=== PATIENT | female | born 1935 | race Caucasian/White ===

== ENCOUNTER → 2019-09-23 | Outpatient (CLI) | payer MEDICARE ==
--- NOTE | 2019-09-23 16:38 | RAD ---
VENOUS LOWER EXTREMITY RIGHT History: Right knee and leg pain. Comparison: None. Discussion: Multiple longitudinal and transverse high resolution real-time images of the venous system of right lower extremity were obtained with color and Doppler sampling. The common femoral, superficial femoral, popliteal and proximal calf veins are all patent and demonstrate normal flow and compressibility. Normal respiratory phasicity and augmentation is present. Impression: 1. No evidence of deep vein thrombosis within the right lower extremity. Electronically signed by: Juaquin Higginbotham DO (09/23/2019 4:35 PM) [id number]
--- NOTE | 2019-09-23 17:33 | RAD ---
Standing AP bilateral knee radiographs 09/23/2019 CLINICAL HISTORY: Anterior knee pain. Standing AP digital radiographs of both knees were obtained. No fracture or dislocation of either knee is seen on these AP radiographs. Moderate joint compartment narrowing ia seen involving the medial compartments of both knees, right greater than left. 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 Electronically signed by: Colin Green MD (09/23/2019 5:30 PM) [id number]
== END | disposition home or self-care (01) ==
LOC: US 15:53
PROVIDERS: ATTEND Physical Medicine & Rehabilitation
DX: M17.0 Bilateral primary osteoarthritis of knee (principal)
CPT/HCPCS: 73565; 93971